=== PATIENT | female | born 1985 | race Caucasian/White ===

== ENCOUNTER 2017-06-29 23:55 | Emergency (ER) | payer OTHER ==
[~2017-06-29] VITALS: Ht 162.6 cm; Wt 81.8 kg
[2017-06-30] MEDS ORDERED: DiphenhydrAMINE HCL 50 MG CAPSULE PO ONE (00:45)
[2017-06-30 00:57] VITALS: BP 135/70
== END 2017-06-30 01:00 | disposition home or self-care (01) ==
LOC: EMS 23:56
DX: S80.862A Insect bite (nonvenomous), left lower leg, initial encounter (principal); S40.861A Insect bite (nonvenomous) of right upper arm, initial encounter; S40.862A Insect bite (nonvenomous) of left upper arm, initial encounter; S30.861A Insect bite (nonvenomous) of abdominal wall, initial encounter; F17.210 Nicotine dependence, cigarettes, uncomplicated; W57.XXXA Bitten or stung by nonvenomous insect and other nonvenomous arthropods, initial encounter; Y93.89 Activity, other specified; Y92.89 Other specified places as the place of occurrence of the external cause; Y99.9 Unspecified external cause status
CPT/HCPCS: 99282

== ENCOUNTER 2022-07-08 07:30 | Inpatient (IN) | payer OTHER ==
[~2022-07-08] VITALS: Ht 162.6 cm; Wt 104.5 kg
[2022-07-08 08:07] LABS: BASOPHILS % (AUTO) 0.9 % (0.0-2.0); EOSINOPHILS % (AUTO) 1.9 % (1.0-6.0); HEMATOCRIT 37.2 % (36-46); HEMOGLOBIN 12.6 g/dL (12.0-16.0); LYMPHOCYTES # (AUTO) 1.8 K/uL (1.0-4.8); LYMPHOCYTES % (AUTO) 22.6 % (22.0-44.0); MEAN CORPUSCULAR HEMOGLOBIN 29.6 pg (26.0-34.0); MEAN CORPUSCULAR VOLUME 87 fL (80-100); MONOCYTES # (AUTO) 0.6 K/uL (0.1-1.0); MONOCYTES % (AUTO) 7.9 % (2.0-9.0); NEUTROPHILS # (AUTO) 5.2 K/uL (1.8-7.7); NEUTROPHILS % (AUTO) 66.7 % (40.0-70.0); PLATELET COUNT (AUTO) 307 K/uL (150-450); RED BLOOD CELL COUNT(AUTO) 4.26 MIL/uL (4.00-5.20); RED CELL DISTRIBUTION WIDTH 14.2 % (11.5-14.5)
[2022-07-08 08:19] LABS: ANION GAP 7 mmol/L (8-16); CALCIUM, TOTAL 8.5 mg/dL (8.8-10.5); CARBON DIOXIDE 29 mmol/L (22-29); CHLORIDE 102 mmol/L (98-107); GLUCOSE,RANDOM 112 mg/dL (70-110); POTASSIUM 3.9 mmol/L (3.5-5.1); SODIUM SERUM 138 mmol/L (136-145); UREA NITROGEN, BLOOD 11 mg/dL (7-18)
[2022-07-08 08:21] LABS: GLOMERULAR FILTR. RATE CALC > 60 mL/min (>60)
[2022-07-08 08:23] LABS: ALANINE AMINOTRANSFERASE 60 U/L (12-78); ALBUMIN 3.7 g/dL (3.4-5.0); ALKALINE PHOSPHATASE 81 U/L (46-116); ASPARTATE AMINOTRANSFERASE 25 U/L (15-37); BILIRUBIN,TOTAL 0.2 mg/dL (0.1-1.0); LIPASE 76 U/L (73-393); TOTAL PROTEIN, SERUM 6.9 g/dL (6.4-8.2)
[2022-07-08] MEDS ORDERED: SODIUM CHLORIDE 0.9% 1,000 ML IV ONE (09:15)
[2022-07-08] MEDS ORDERED: FentaNYL CITRATE PF 100 MCG/2 ML VIAL IVP ONE (09:15)
[2022-07-08 15:23] LABS: COVID AG,FIA SOURCE NASOPHARYNGEAL
[2022-07-08 18:29] VITALS: BP 123/66
[2022-07-08] MEDS ORDERED: MORPHINE SULFATE 2 MG/ML SYRINGE IVP PRN (18:30)
[2022-07-08] MEDS ORDERED: SODIUM CHLORIDE 0.9% 500 ML IV ONE (18:50)
[2022-07-08] MEDS: CefTRIAXone 1 GM/DEXTROSE 50 ML IV SCH (19:01)
[2022-07-08 19:35] VITALS: BP 128/70
[2022-07-08] MEDS ORDERED: ALBUTEROL SULFATE 2.5 MG/0.5 ML NEB SOLUTION NEB PRN (22:15)
[2022-07-08] MEDS ORDERED: MAGNESIUM HYDROXIDE SUSPENSION 30 ML UDCUP PO PRN (22:15)
[2022-07-08] MEDS ORDERED: BISACODYL 10 MG RECTAL RECTAL SUPPOSITORY PR PRN (22:15)
[2022-07-08] MEDS ORDERED: ZOLPIDEM TARTRATE 5 MG TABLET PO PRN (22:15)
[2022-07-08] MEDS ORDERED: ACETAMINOPHEN 325 MG TABLET PO PRN (22:15)
[2022-07-08] MEDS ORDERED: IPRATROPIUM BROMIDE 0.5 MG/2.5 ML NEB SOLUTION NEB PRN (22:15)
[2022-07-08] MEDS: RINGERS SOLUTION,LACTATED 1,000 ML IV SCH (22:53)
[2022-07-08] MEDS: HEPARIN SODIUM,PORCINE 5,000 UNITS/ML VIAL SQ SCH (23:02)
[2022-07-09 04:10] VITALS: BP 92/63
[2022-07-09 07:18] VITALS: BP 100/64
[2022-07-09] MEDS ORDERED: SODIUM CL IRRIG SOLN BAG 3,000 ML IRRIG ONE (07:50)
[2022-07-09] MEDS ORDERED: BUPIVACAINE 0.25%/EPI 1:200,000/PF 10 ML VIAL ONE (07:50)
[2022-07-09] MEDS: HEPARIN SODIUM,PORCINE 5,000 UNITS/ML VIAL SQ SCH ×3 (08:00→23:44)
[2022-07-09] MEDS ORDERED: RINGERS SOLUTION,LACTATED 1,000 ML IV ONE ×2 (08:25→09:30)
[2022-07-09] MEDS: PANTOPRAZOLE SODIUM 40 MG/VIAL IVP SCH (09:00)
[2022-07-09] MEDS: DOCUSATE SODIUM 100 MG CAPSULE PO SCH ×2 (09:00→20:47)
[2022-07-09] MEDS ORDERED: SUGAMMADEX SODIUM 200 MG/2 ML VIAL IVP ONE (09:28)
[2022-07-09] MEDS ORDERED: HYDROmorphone 2 MG/ML VIAL ONE (10:25)
[2022-07-09] MEDS: HYDROmorphone 2 MG/ML VIAL IVP PRN ×3 (10:29→11:02)
[2022-07-09] MEDS ORDERED: FentaNYL CITRATE PF 100 MCG/2 ML VIAL IVP PRN (10:30)
[2022-07-09 11:25] VITALS: BP 144/98
[2022-07-09 12:58] VITALS: BP 151/94
[2022-07-09] MEDS: RINGERS SOLUTION,LACTATED 1,000 ML IV SCH (12:58)
[2022-07-09] MEDS: MORPHINE SULFATE 2 MG/ML SYRINGE IVP PRN ×3 (14:59→23:56)
[2022-07-09] MEDS: ONDANSETRON HCL 4 MG/2 ML VIAL IVP PRN (15:02)
[2022-07-09 15:12] VITALS: BP 122/61
[2022-07-09 19:50] VITALS: BP 130/84
[2022-07-09] MEDS: CefTRIAXone 1 GM/DEXTROSE 50 ML IV SCH (20:46)
[2022-07-09] MEDS: OXYGEN THERAPY IH SCH (20:55)
[2022-07-10 04:20] VITALS: BP 113/65
[2022-07-10] MEDS ORDERED: MIDAZOLAM HCL 2 MG/2 ML VIAL IVP ONE (05:58)
[2022-07-10] MEDS ORDERED: ROCURONIUM BROMIDE 10 MG/ML 5 ML VIAL IVP ONE (05:58)
[2022-07-10] MEDS ORDERED: LIDOCAINE/PF 2% 5 ML VIAL IM ONE (05:58)
[2022-07-10] MEDS ORDERED: PROPOFOL 1% 20 ML VIAL IVP ONE (05:58)
[2022-07-10] MEDS ORDERED: KETOROLAC TROMETHAMINE 60 MG/2 ML VIAL IM ONE (05:58)
[2022-07-10] MEDS ORDERED: FentaNYL CITRATE PF 100 MCG/2 ML VIAL IVP ONE (05:58)
[2022-07-10] MEDS ORDERED: ONDANSETRON HCL 4 MG/2 ML VIAL IVP ONE (05:58)
[2022-07-10] MEDS: OXYGEN THERAPY IH SCH (08:00)
[2022-07-10 08:28] VITALS: BP 125/77
[2022-07-10] MEDS: PANTOPRAZOLE SODIUM 40 MG/VIAL IVP SCH (08:36)
[2022-07-10] MEDS: HEPARIN SODIUM,PORCINE 5,000 UNITS/ML VIAL SQ SCH (08:37)
[2022-07-10] MEDS: DOCUSATE SODIUM 100 MG CAPSULE PO SCH (08:37)
[2022-07-10] MEDS: HYDROCODONE/ACETAMINOPHEN 5-325 MG TABLET PO PRN ×2 (08:37→15:47)
[2022-07-10] MEDS: ONDANSETRON HCL 4 MG/2 ML VIAL IVP PRN (08:47)
[2022-07-10] MEDS: RINGERS SOLUTION,LACTATED 1,000 ML IV SCH (08:48)
[2022-07-10] MEDS ORDERED: HYDR-4723 PO (15:30)
== END 2022-07-10 16:00 | disposition home or self-care (01) | DRG 263 ==
LOC: EMS 07:33 → 6N 17:00
PROVIDERS: ADMIT Hospitalist; ATTEND Hospitalist
PROC: 0FT44ZZ Resection of Gallbladder, Percutaneous Endoscopic Approach (ICD-10-PCS; principal; 2022-07-08)
DX: K80.00 Calculus of gallbladder with acute cholecystitis without obstruction (principal); E11.9 Type 2 diabetes mellitus without complications; E66.01 Morbid (severe) obesity due to excess calories; Z20.822 Contact with and (suspected) exposure to COVID-19; J45.909 Unspecified asthma, uncomplicated; Z88.0 Allergy status to penicillin; Z87.891 Personal history of nicotine dependence; Z68.35 Body mass index [BMI] 35.0-35.9, adult
CPT/HCPCS: 76700; 80053; 83690; 84703; 85025; 87081; 88300; 88304; 99285; C9113; J0696; J1170; J1644; J1885; J2250; J2270; J2405; J2704; J3010; J3490; J7040; J7120; Q9967

== ENCOUNTER 2022-09-17 12:32 | Emergency (ER) | payer OTHER ==
[~2022-09-17] VITALS: Ht 162.6 cm; Wt 109.1 kg
[~2022-09-17 12:32] MED LIST: HYDR-4723 PO
[2022-09-17 13:38] LABS: COVID AG,FIA SOURCE NASOPHARYNGEAL
[2022-09-17 13:54] VITALS: BP 134/62
[2022-09-17 13:58] LABS: INFLUENZA TYPE A NEGATIVE FOR TYPE A (NEGATIVE); INFLUENZA TYPE B NEGATIVE FOR TYPE B (NEGATIVE)
[2022-09-17 14:17] LABS: RAPID GROUP A STREP NEGATIVE (NEGATIVE)
[2022-09-17] MEDS ORDERED: OXYMETAZOLINE HCL 0.05% 15 ML NASAL SPRAY NASAL ONE (14:45)
== END 2022-09-17 15:00 | disposition home or self-care (01) ==
LOC: EMS 12:37
DX: J06.9 Acute upper respiratory infection, unspecified (principal); H92.01 Otalgia, right ear; F17.210 Nicotine dependence, cigarettes, uncomplicated; Z88.0 Allergy status to penicillin; Z20.822 Contact with and (suspected) exposure to COVID-19
CPT/HCPCS: 87430; 87804; 99283

== ENCOUNTER 2022-09-24 11:49 | Emergency (ER) | payer OTHER ==
[~2022-09-24] VITALS: Ht 162.6 cm; Wt 90.9 kg
[2022-09-24] MEDS ORDERED: METF-1211 PO (12:05)
[2022-09-24] MEDS ORDERED: SODIUM CHLORIDE 0.9% 1,000 ML IV ONE (13:00)
[2022-09-24] MEDS ORDERED: ONDANSETRON HCL 4 MG/2 ML VIAL IVP ONE (13:00)
[2022-09-24 13:44] LABS: BASOPHILS % (AUTO) 1.3 % (0.0-2.0); EOSINOPHILS % (AUTO) 2.4 % (1.0-6.0); HEMATOCRIT 41.4 % (36-46); HEMOGLOBIN 13.9 g/dL (12.0-16.0); LYMPHOCYTES # (AUTO) 1.6 K/uL (1.0-4.8); LYMPHOCYTES % (AUTO) 28.8 % (22.0-44.0); MEAN CORPUSCULAR HEMOGLOBIN 30.8 pg (26.0-34.0); MEAN CORPUSCULAR HGB CONC 33.5 G/dL (31.0-37.0); MEAN CORPUSCULAR VOLUME 92 fL (80-100); MONOCYTES # (AUTO) 0.4 K/uL (0.1-1.0); MONOCYTES % (AUTO) 6.2 % (2.0-9.0); NEUTROPHILS # (AUTO) 3.5 K/uL (1.8-7.7); NEUTROPHILS % (AUTO) 61.3 % (40.0-70.0); PLATELET COUNT (AUTO) 342 K/uL (150-450); RED CELL DISTRIBUTION WIDTH 12.6 % (11.5-14.5)
[2022-09-24 13:56] LABS: ANION GAP 6 mmol/L (8-16); CALCIUM, TOTAL 9.4 mg/dL (8.8-10.5); CARBON DIOXIDE 31 mmol/L (22-29); CHLORIDE 104 mmol/L (98-107); CREATININE 0.77 mg/dL (0.60-1.30); GLOMERULAR FILTR. RATE CALC > 60 mL/min (>60); GLUCOSE,RANDOM 98 mg/dL (70-110); POTASSIUM 4.1 mmol/L (3.5-5.1); SODIUM SERUM 141 mmol/L (136-145); UREA NITROGEN, BLOOD 8 mg/dL (7-18)
[2022-09-24] MEDS ORDERED: LIDOCAINE 2% VISCOUS 15 ML SOLUTION UDCUP PO ONE (14:00)
[2022-09-24] MEDS ORDERED: MAG HYDROX/AL HYDROX/SIMETH ES 30 ML SUSPENSION UDCUP PO ONE (14:00)
[2022-09-24 14:10] LABS: HCG,QUANTITATIVE < 1 mIU/mL (0-6)
[2022-09-24] MEDS ORDERED: ONDA-104 PO (14:40)
[2022-09-24 15:26] VITALS: BP 118/71
== END 2022-09-24 15:35 | disposition home or self-care (01) ==
LOC: EMS 11:54
DX: K52.9 Noninfective gastroenteritis and colitis, unspecified (principal); F17.210 Nicotine dependence, cigarettes, uncomplicated; Z90.49 Acquired absence of other specified parts of digestive tract; Z88.0 Allergy status to penicillin
CPT/HCPCS: 99285; 96374; 71046; 96361; 80048; 82962; 84702; 85025; 36415; J2405; J7030

== ENCOUNTER 2023-09-15 20:24 | Emergency (ER) | payer OTHER ==
[~2023-09-15 20:24] MED LIST changes: -HYDR-4723 PO; +METF-1211 PO; +ONDA-104 PO
== END 2023-09-15 20:38 | disposition left against medical advice (07) ==
LOC: EMS 20:25
DX: Z53.21 Procedure and treatment not carried out due to patient leaving prior to being seen by health care provider (principal)

== ENCOUNTER 2023-10-17 14:27 | Emergency (ER) | payer OTHER ==
[~2023-10-17] VITALS: Ht 167.6 cm; Wt 95.5 kg
[2023-10-17 14:32] VITALS: BP 130/69; PULSE 93; RESP 16; TEMP 98.8
[2023-10-17 14:46] LABS: GLUCOMETER DEV NAME(LOC) ERT.5; GLUCOSE,POINT OF CARE 121 MG/DL (70-110)
[2023-10-17 14:51] LABS: COVID AG,FIA SOURCE NASAL SWAB
[2023-10-17 15:24] LABS: SARS-COV2 (COVID) ANTIGEN,FIA Negative (Negative)
[2023-10-17 15:25] LABS: INFLUENZA TYPE B NEGATIVE FOR TYPE B (NEGATIVE)
[2023-10-17 15:38] LABS: INFLUENZA TYPE A POSITIVE FOR TYPE A (NEGATIVE)
== END 2023-10-17 16:11 | disposition left against medical advice (07) ==
LOC: EMS 14:27
DX: L02.411 Cutaneous abscess of right axilla (principal); R05.9 Cough, unspecified; R52 Pain, unspecified; Z53.21 Procedure and treatment not carried out due to patient leaving prior to being seen by health care provider; Z20.822 Contact with and (suspected) exposure to COVID-19
CPT/HCPCS: 82962; 87804; 99281

== ENCOUNTER 2024-04-20 11:37 | Emergency (ER) | payer OTHER ==
[~2024-04-20] VITALS: Ht 162.6 cm; Wt 95.4 kg
[~2024-04-20 11:37] MED LIST changes: -ONDA-104 PO
[2024-04-20 11:44] VITALS: BP 128/50; PULSE 80; RESP 18; TEMP 97.5
[2024-04-20] MEDS: KETOROLAC TROMETHAMINE 60 MG/2 ML VIAL IM ONE (13:04)
[2024-04-20] MEDS ORDERED: IBUP-1492 PO (15:32)
[2024-04-20] MEDS ORDERED: PERCT PO (15:33)
[2024-04-22] MEDS ORDERED: AMOX250C4 PO (18:10)
== END 2024-04-20 14:02 | disposition home or self-care (01) ==
LOC: EMS 11:37
DX: K02.9 Dental caries, unspecified (principal); K08.89 Other specified disorders of teeth and supporting structures; E11.9 Type 2 diabetes mellitus without complications; J45.909 Unspecified asthma, uncomplicated; F17.210 Nicotine dependence, cigarettes, uncomplicated; Z90.49 Acquired absence of other specified parts of digestive tract; Z88.0 Allergy status to penicillin
CPT/HCPCS: 99283; 96372; J1885

== ENCOUNTER → 2024-04-22 | Emergency (ER) | payer OTHER ==
[~2024-04-22] VITALS: Ht 162.6 cm; Wt 98.6 kg
[~2024-04-22] MED LIST changes: +AMOX250C4 PO; +IBUP-1492 PO; +PERCT PO
[2024-04-22 16:41] VITALS: BP 120/63; PULSE 79; RESP 15; TEMP 98
== END | disposition still patient (30) ==
LOC: EMS 16:21
DX: K08.89 Other specified disorders of teeth and supporting structures (principal); J45.909 Unspecified asthma, uncomplicated; F17.210 Nicotine dependence, cigarettes, uncomplicated; E11.9 Type 2 diabetes mellitus without complications; Z90.49 Acquired absence of other specified parts of digestive tract; Z88.0 Allergy status to penicillin
CPT/HCPCS: 99283; Z7502